=== PATIENT | female | born 1975 | race Caucasian/White ===

== ENCOUNTER 2017-01-17 07:08 | Emergency (ER) | payer OTHER ==
--- NOTE | 2017-01-17 07:37 | UC ---
Eye Complaint HPI - HPI Summary HPI Summary: RIGHT EYE IRRITATION X 2 DAYS + REDNESS, DISCHARGE, NO EYE PAIN , NO CHANGE IN VISION , NO PHOTOPHOBIA - History of Current Complaint Chief Complaint: UCEye Stated Complaint: EYE COMPLAINT Time Seen by Provider: 01/17/17 07:27 Hx Obtained From: Patient Hx Last Menstrual Period: pt has mirena and states not getting a menses ?: No Onset/Duration: Gradual Onset, Lasting Days - 2, Still Present Timing: Constant Severity Initially: Moderate Severity Currently: Moderate Location of Injury: Conjunctiva - RIGHT Character: Foreign Body Sensation Aggravating Factor(s): Nothing Alleviating Factor(s): Nothing Associated Signs And Symptoms: Positive: Drainage (Purulent) - RIGHT EYE. Negative: Photophobia, Vision Impairment Bilateral, Vision Impairment Right, Vision Impairment Left, Fever, Swelling - Allergies/Home Medications Allergies/Adverse Reactions: Allergies Allergy/AdvReac Type Severity Reaction Status Date / Time No Known Allergies Allergy Verified 01/17/17 07:20 Home Medications: Home Medications Levonorgestrel (Iud) [Mirena IUD] 1 implant IMPLANT DAILY 01/17/17 [History Confirmed 01/17/17] Multiple Vitamin [Multi Vitamin] 1 tab PO DAILY 01/17/17 [History Confirmed ] PMH/Surg Hx/FS Hx/Imm Hx Previously Healthy: Yes - Surgical History Surgical History: None - Family History Known Family History: Negative: Diabetes - Social History Alcohol Use: Daily Alcohol Amount: wine Substance Use Type: None Smoking Status (MU): Never Smoked Tobacco Review of Systems Constitutional: Negative Skin: Negative Eyes: Drainage - RIGHT EYE, Eye Redness - RIGHT EYE Respiratory: Negative Cardiovascular: Negative All Other Systems Reviewed And Are Negative: Yes Physical Exam Triage Information Reviewed: Yes Appearance: Well-Appearing, No Pain Distress, Well-Nourished Vital Signs: Initial Vital Signs Temp 97.9 F 01/17/17 07:11 Pulse 73 01/17/17 07:11 Resp 14 01/17/17 07:11 BP 136/88 01/17/17 07:11 Pulse Ox 100 01/17/17 07:11 Vital Signs Reviewed: Yes Eyes: Positive: Conjunctiva Inflamed - RIGHT EYE, Discharge - RIGHT EYE ENT: Positive: Normal ENT inspection, Hearing grossly normal, Pharynx normal Neck exam: Normal Neck: Positive: Supple, Nontender Respiratory: Positive: Chest non-tender, Lungs clear, Normal breath sounds Cardiovascular: Positive: RRR, No Murmur, Pulses Normal Skin Exam: Normal Eye Complaint Course/Dx - Differential Dx/Diagnosis Provider Diagnoses: CONJUNCTIVITIS Discharge - Discharge Plan Condition: Stable Disposition: HOME Prescriptions: Erythromycin OPHTH.OINT* [Ilotycin OPHTH.OINT*] 1 applic RIGHT EYE Q4H #1 tube Patient Education Materials: Conjunctivitis (ED) Referrals: No Primary Care Phys,NOPCP [Primary Care Provider] - If Needed
[2017-01-17 07:40] VITALS: BP 136/88
== END 2017-01-17 07:46 | disposition home or self-care (01) ==
LOC: UCCORT 07:08
DX: H10.9 Unspecified conjunctivitis (principal)
CPT/HCPCS: 99212; G0463